=== PATIENT | male | born 1985 | race Hispanic/Latino ===

== ENCOUNTER 2022-08-14 16:18 | Inpatient (IN) | payer OTHER ==
[~2022-08-14] VITALS: Ht 172.7 cm; Wt 123.3 kg
[2022-08-14 16:49] LABS: BASOPHILS % (AUTO) 0.2 % (0.0-5.0); EOSINOPHILS % (AUTO) 0.6 % (0.0-8.0); HEMATOCRIT 48.6 % (42-54); LYMPHOCYTES % (AUTO) 11.2 % (21.0-51.0); MEAN CORPUSCULAR HEMOGLOBIN 30.9 pg (27.0-33.0); MEAN CORPUSCULAR HGB CONC 35.2 g/dL (32.0-36.0); MEAN CORPUSCULAR VOLUME 87.7 fL (79-99); NEUTROPHILS % (AUTO) 75.6 % (40.0-77.0); PLATELET COUNT (AUTO) 157 K/uL (130-400); RED BLOOD CELL COUNT(AUTO) 5.54 MIL/uL (4.50-6.20); RED CELL DISTRIBUTION WIDTH 12.8 % (11.0-15.5); WHITE BLOOD COUNT (AUTO) 12.4 K/uL (4.8-10.8)
[2022-08-14 17:04] LABS: CREATININE 0.7 mg/dL (0.5-1.5); POTASSIUM 3.8 mmol/L (3.5-5.1); TOTAL PROTEIN, SERUM 8.1 g/dL (6.0-8.3)
[2022-08-14 17:19] LABS: APPEARANCE,URINE CLEAR (CLEAR); BILIRUBIN,URINE NEGATIVE (NEGATIVE); COLOR,URINE LIGHT-YELLOW (YELLOW); GLUCOSE, URINE (UA) >=1000 mg/dL (NEGATIVE); KETONES,URINE 40 mg/dL (NEGATIVE); LEUKOCYTE ESTERASE ,URINE NEGATIVE Leu/uL (NEGATIVE); NITRATE,URINE NEGATIVE (NEGATIVE); OCCULT BLOOD,URINE NEGATIVE (NEGATIVE); PROTEIN,URINE 20 mg/dL (NEGATIVE); UROBILINOGEN,URINE 0.2 mg/dL (0.2-1.0)
[2022-08-14 17:22] LABS: RBC,URINE 0-1 /HPF (0-1); WBC,URINE 0-1 /HPF (0-1)
[2022-08-14] MEDS ORDERED: MORPHINE 4 MG SYG IVP ONE (17:30)
[2022-08-14] MEDS ORDERED: MORPHINE 4 MG SYG ONE (17:30)
[2022-08-14] MEDS ORDERED: KETOROLAC 30MG VIAL (30MG/ML) IVP ONE (20:30)
[2022-08-14] MEDS ORDERED: ONDANSETRON 4MG INJ IVP ONE (20:30)
[2022-08-14] MEDS ORDERED: LIDOCAINE HCL/PF 2% IV FOR VENTRICULAR ARRHYTHMIA IV PRN (21:30)
[2022-08-14] MEDS ORDERED: HYDROMORPHONE 1 MG INJ IVP ONE (21:30)
[2022-08-14] MEDS ORDERED: CYCLOBENZAPRINE HCL 10 MG TABLET PO ONE (23:00)
[2022-08-15] MEDS ORDERED: ONDANSETRON 4MG INJ IV PRN (00:30)
[2022-08-15 01:22] LABS: HEMOGLOBIN A1C 9.8 % (4.0-6.0)
[2022-08-15] MEDS: 0.9%NACL 1000ML 1,000 ML IV SCH ×3 (01:52→17:44)
[2022-08-15 02:35] VITALS: BP 160/92
[2022-08-15] MEDS ORDERED: METF500S9 PO (02:41)
[2022-08-15] MEDS: MORPHINE 2 MG SYG IV PRN ×2 (03:00→08:21)
[2022-08-15 08:00] VITALS: BP 146/92
[2022-08-15] MEDS: ACETAMINOPHEN 325 MG TAB PO PRN ×2 (08:15→18:39)
[2022-08-15] MEDS: FAMOTIDINE 20MG VIAL IV SCH ×2 (08:22→21:04)
[2022-08-15 11:03] LABS: HEMATOCRIT 45.8 % (42-54); MEAN CORPUSCULAR HEMOGLOBIN 31.1 pg (27.0-33.0); MEAN CORPUSCULAR HGB CONC 34.9 g/dL (32.0-36.0); MEAN CORPUSCULAR VOLUME 88.9 fL (79-99); RED BLOOD CELL COUNT(AUTO) 5.15 MIL/uL (4.50-6.20); RED CELL DISTRIBUTION WIDTH 12.5 % (11.0-15.5)
[2022-08-15 11:12] LABS: CREATININE 0.8 mg/dL (0.5-1.5); POTASSIUM 3.8 mmol/L (3.5-5.1)
[2022-08-15] MEDS ORDERED: LORAZEPAM 2 MG/ML 1 ML VIAL IVP PRN ×2 (11:30)
[2022-08-15] MEDS ORDERED: PHARMACY COMMUNICATION MISC PRN (11:30)
[2022-08-15] MEDS ORDERED: CHLORDIAZEPOXIDE HCL 25 MG CAP PO PRN ×2 (11:30)
[2022-08-15] MEDS: KETOROLAC 15MG/ML VIAL (15MG/ML) IV PRN ×2 (11:33→17:56)
[2022-08-15] MEDS: ZOSYN 3.375GM +NS 50ML IV SCH ×2 (11:33→18:38)
[2022-08-15 12:00] VITALS: BP 147/85
[2022-08-15] MEDS ORDERED: INSULIN HUMULIN R 100 UNIT/ML 3ML SQ SCH (12:00)
[2022-08-15] MEDS ORDERED: LIDOCAINE 5% TOPICAL PATCH TP ONE (13:00)
[2022-08-15] MEDS: CYCLOBENZAPRINE HCL 10 MG TABLET PO SCH ×2 (13:25→21:04)
[2022-08-15] MEDS: LIDOCAINE 5% TOPICAL PATCH TP SCH (13:25)
[2022-08-15] MEDS ORDERED: VANCOMYCIN PROTOCOL PER PHARMACY IV SCH (14:00)
[2022-08-15 16:00] VITALS: BP 139/116
[2022-08-15] MEDS ORDERED: DOXYCYCLINE 100MG+NS 250ML IV SCH (16:00)
[2022-08-15 16:10] LABS: AMPHET/METH SCREEN,URINE NEGATIVE (NEGATIVE); BARBITURATE SCREEN, URINE NEGATIVE (NEGATIVE); BENZODIAZEPINES SCREEN,URINE NEGATIVE (NEGATIVE); CANNABINOID SCREEN,URINE POSITIVE (NEGATIVE); COCAINE SCREEN,URINE POSITIVE (NEGATIVE); OPIATE SCREEN,URINE NEGATIVE (NEGATIVE); PHENCYCLIDINE SCREEN,URINE NEGATIVE (NEGATIVE)
[2022-08-15] MEDS: INSULIN HUMULIN R 100 UNIT/ML 3ML SQ SCH ×3 (16:30→21:25)
[2022-08-15] MEDS ORDERED: 0.9% NACL 250ML 250 ML ONE ×2 (17:23→21:21)
[2022-08-15] MEDS: VANCOMYCIN 1G/250ML KIT 250 ML IV SCH ×2 (17:43→21:26)
[2022-08-15] MEDS: LACTULOSE 20 GM/30 ML UDCUP PO PRN (17:56)
[2022-08-15 20:03] VITALS: BP 157/84
[2022-08-15] MEDS: DOXYCYCLINE HYCLATE 100 MG TABLET PO SCH (21:04)
[2022-08-15 22:50] VITALS: BP 166/91
[2022-08-16] MEDS: ACETAMINOPHEN 325 MG TAB PO PRN ×3 (00:54→15:07)
[2022-08-16 03:33] VITALS: BP 159/96
[2022-08-16] MEDS ORDERED: 0.9% NACL 250ML 250 ML ONE (05:07)
[2022-08-16] MEDS: ZOSYN 3.375GM +NS 50ML IV SCH ×3 (05:29→18:44)
[2022-08-16] MEDS: VANCOMYCIN 1G/250ML KIT 250 ML IV SCH (05:29)
[2022-08-16] MEDS: 0.9%NACL 1000ML 1,000 ML IV SCH ×4 (05:30→21:36)
[2022-08-16 07:30] VITALS: BP 151/92
[2022-08-16] MEDS: INSULIN HUMULIN R 100 UNIT/ML 3ML SQ SCH ×4 (07:47→20:18)
[2022-08-16] MEDS: LIDOCAINE 5% TOPICAL PATCH TP SCH (09:04)
[2022-08-16] MEDS: DOXYCYCLINE HYCLATE 100 MG TABLET PO SCH ×2 (09:04→20:17)
[2022-08-16] MEDS: CYCLOBENZAPRINE HCL 10 MG TABLET PO SCH ×3 (09:04→20:17)
[2022-08-16] MEDS: FAMOTIDINE 20MG VIAL IV SCH ×2 (09:05→20:17)
[2022-08-16 11:30] VITALS: BP 152/89
[2022-08-16] MEDS ORDERED: GADOTERATE MEGLUMINE 10 MMOL/20 ML VIAL IV ONE (13:45)
[2022-08-16] MEDS: KETOROLAC 15MG/ML VIAL (15MG/ML) IV PRN (14:44)
[2022-08-16] MEDS: VANCOMYCIN 1.25 GM/250 ML BAG 250 ML IV SCH ×2 (14:58→23:04)
[2022-08-16] MEDS: MORPHINE 2 MG SYG IV PRN ×2 (15:08→23:05)
[2022-08-16 20:31] VITALS: BP 162/101
[2022-08-16 22:02] LABS: APPEARANCE,URINE CLEAR (CLEAR); BILIRUBIN,URINE NEGATIVE (NEGATIVE); COLOR,URINE LIGHT-YELLOW (YELLOW); GLUCOSE, URINE (UA) >=1000 mg/dL (NEGATIVE); KETONES,URINE 20 mg/dL (NEGATIVE); LEUKOCYTE ESTERASE ,URINE NEGATIVE Leu/uL (NEGATIVE); NITRATE,URINE NEGATIVE (NEGATIVE); OCCULT BLOOD,URINE NEGATIVE (NEGATIVE); PROTEIN,URINE 10 mg/dL (NEGATIVE); WBC,URINE 0-1 /HPF (0-1)
[2022-08-17] MEDS: KETOROLAC 15MG/ML VIAL (15MG/ML) IV PRN ×4 (00:22→18:04)
[2022-08-17] MEDS: ACETAMINOPHEN 325 MG TAB PO PRN (00:22)
[2022-08-17 01:30] VITALS: BP 159/101
[2022-08-17] MEDS: ZOSYN 3.375GM +NS 50ML IV SCH ×3 (02:33→18:12)
[2022-08-17 04:09] VITALS: BP 163/106
[2022-08-17 04:25] LABS: BASOPHILS % (AUTO) 0.3 % (0.0-5.0); HEMATOCRIT 45.7 % (42-54); MEAN CORPUSCULAR HEMOGLOBIN 30.8 pg (27.0-33.0); MEAN CORPUSCULAR HGB CONC 35.2 g/dL (32.0-36.0); MEAN CORPUSCULAR VOLUME 87.5 fL (79-99); MONOCYTES % (AUTO) 11.9 % (3.0-13.0); NEUTROPHILS % (AUTO) 75.3 % (40.0-77.0); PLATELET COUNT (AUTO) 134 K/uL (130-400); RED BLOOD CELL COUNT(AUTO) 5.22 MIL/uL (4.50-6.20); RED CELL DISTRIBUTION WIDTH 11.9 % (11.0-15.5); WHITE BLOOD COUNT (AUTO) 7.7 K/uL (4.8-10.8)
[2022-08-17 04:47] LABS: ALBUMIN 2.5 g/dL (3.5-5.0); CREATININE 0.8 mg/dL (0.5-1.5); TOTAL PROTEIN, SERUM 6.2 g/dL (6.0-8.3)
[2022-08-17 05:55] LABS: POTASSIUM 2.9 mmol/L (3.5-5.1)
[2022-08-17] MEDS ORDERED: KCL 20 MEQ ERTAB PO ONE (06:13)
[2022-08-17] MEDS ORDERED: POTASSIUM CHLORIDE 20MEQ/100ML 100 ML IV ONE (06:14)
[2022-08-17] MEDS: KCL 20 MEQ ERTAB PO PRN ×4 (06:17→18:12)
[2022-08-17] MEDS: VANCOMYCIN 1.25 GM/250 ML BAG 250 ML IV SCH ×2 (06:18→15:16)
[2022-08-17] MEDS: INSULIN HUMULIN R 100 UNIT/ML 3ML SQ SCH ×4 (06:19→21:27)
[2022-08-17] MEDS ORDERED: POTASSIUM CHLORIDE 20MEQ/100ML 100 ML IV PRN (06:30)
[2022-08-17] MEDS ORDERED: LIDOCAINE HCL-MPF 1% 2ML VIAL IV PRN (06:30)
[2022-08-17] MEDS ORDERED: POTASSIUM CHLORIDE 10% ELIXIR 20 MEQ/15 ML UDCUP PO PRN (06:30)
[2022-08-17 07:30] VITALS: BP 145/95
[2022-08-17] MEDS: 0.9%NACL 1000ML 1,000 ML IV SCH ×2 (08:30→20:49)
[2022-08-17] MEDS: FAMOTIDINE 20MG VIAL IV SCH ×2 (09:45→20:48)
[2022-08-17] MEDS: DOXYCYCLINE HYCLATE 100 MG TABLET PO SCH ×2 (09:46→20:48)
[2022-08-17] MEDS: LIDOCAINE 5% TOPICAL PATCH TP SCH (09:46)
[2022-08-17] MEDS: CYCLOBENZAPRINE HCL 10 MG TABLET PO SCH ×3 (09:46→20:48)
[2022-08-17 11:00] VITALS: BP 135/75
[2022-08-17 16:00] VITALS: BP 163/91
[2022-08-17] MEDS: VANCOMYCIN 1.5 GM/250 ML BAG 250 ML IV SCH (20:48)
[2022-08-17] MEDS: MORPHINE 2 MG SYG IV PRN (21:27)
[2022-08-17 21:29] VITALS: BP 173/105
[2022-08-18] MEDS: KETOROLAC 15MG/ML VIAL (15MG/ML) IV PRN ×3 (00:14→20:03)
[2022-08-18 00:23] VITALS: BP 150/91
[2022-08-18] MEDS: 0.9%NACL 1000ML 1,000 ML IV SCH ×3 (00:30→16:59)
[2022-08-18] MEDS: ZOSYN 3.375GM +NS 50ML IV SCH ×2 (02:17→10:34)
[2022-08-18] MEDS: VANCOMYCIN 1.5 GM/250 ML BAG 250 ML IV SCH ×2 (04:27→13:45)
[2022-08-18] MEDS: ACETAMINOPHEN 325 MG TAB PO PRN (04:28)
[2022-08-18 05:06] VITALS: BP 155/95
[2022-08-18 05:20] LABS: HEMATOCRIT 45.1 % (42-54); MEAN CORPUSCULAR HEMOGLOBIN 30.3 pg (27.0-33.0); MEAN CORPUSCULAR VOLUME 86.4 fL (79-99); RED BLOOD CELL COUNT(AUTO) 5.22 MIL/uL (4.50-6.20); RED CELL DISTRIBUTION WIDTH 11.9 % (11.0-15.5); WHITE BLOOD COUNT (AUTO) 6.4 K/uL (4.8-10.8)
[2022-08-18 05:39] LABS: ALBUMIN 2.5 g/dL (3.5-5.0); CREATININE 0.8 mg/dL (0.5-1.5); POTASSIUM 3.3 mmol/L (3.5-5.1); TOTAL PROTEIN, SERUM 6.3 g/dL (6.0-8.3)
[2022-08-18] MEDS: INSULIN HUMULIN R 100 UNIT/ML 3ML SQ SCH ×4 (05:49→20:06)
[2022-08-18] MEDS: KCL 20 MEQ ERTAB PO PRN (05:50)
[2022-08-18 08:00] VITALS: BP 140/92
[2022-08-18] MEDS: CYCLOBENZAPRINE HCL 10 MG TABLET PO SCH ×3 (09:04→19:58)
[2022-08-18] MEDS: DOXYCYCLINE HYCLATE 100 MG TABLET PO SCH (09:05)
[2022-08-18] MEDS: FAMOTIDINE 20MG VIAL IV SCH ×2 (09:05→19:58)
[2022-08-18] MEDS: LIDOCAINE 5% TOPICAL PATCH TP SCH (09:06)
[2022-08-18 12:00] VITALS: BP 162/97
[2022-08-18 16:00] VITALS: BP 172/104
[2022-08-18] MEDS: CEFAZOLIN SODIUM 1 GM VIAL IVP SCH ×2 (16:59→22:57)
[2022-08-18 20:19] VITALS: BP 155/96
[2022-08-19] VITALS (7 sets, daily range): BP systolic 138–177; BP diastolic 89–102
[2022-08-19] MEDS: 0.9%NACL 1000ML 1,000 ML IV SCH ×2 (00:30→04:30)
[2022-08-19] MEDS: MORPHINE 2 MG SYG IV PRN (00:44)
[2022-08-19 04:43] LABS: HEMATOCRIT 39.5 % (42-54); MEAN CORPUSCULAR HEMOGLOBIN 30.7 pg (27.0-33.0); MEAN CORPUSCULAR HGB CONC 35.4 g/dL (32.0-36.0); MEAN CORPUSCULAR VOLUME 86.6 fL (79-99); RED BLOOD CELL COUNT(AUTO) 4.56 MIL/uL (4.50-6.20); WHITE BLOOD COUNT (AUTO) 6.6 K/uL (4.8-10.8)
[2022-08-19 04:52] LABS: CREATININE 0.7 mg/dL (0.5-1.5); POTASSIUM 3.2 mmol/L (3.5-5.1)
[2022-08-19] MEDS: INSULIN HUMULIN R 100 UNIT/ML 3ML SQ SCH ×4 (05:29→22:34)
[2022-08-19] MEDS: KCL 20 MEQ ERTAB PO PRN (05:50)
[2022-08-19] MEDS: FAMOTIDINE 20MG VIAL IV SCH ×2 (08:32→20:03)
[2022-08-19] MEDS: CEFAZOLIN SODIUM 1 GM VIAL IVP SCH ×2 (08:32→16:47)
[2022-08-19] MEDS: CYCLOBENZAPRINE HCL 10 MG TABLET PO SCH ×3 (08:32→20:03)
[2022-08-19] MEDS: LIDOCAINE 5% TOPICAL PATCH TP SCH (08:32)
[2022-08-19] MEDS: LACTULOSE 20 GM/30 ML UDCUP PO PRN (12:04)
[2022-08-19] MEDS: KETOROLAC 15MG/ML VIAL (15MG/ML) IV PRN ×2 (12:04→22:13)
[2022-08-20] MEDS: CEFAZOLIN SODIUM 1 GM VIAL IVP SCH ×3 (00:28→21:05)
[2022-08-20 03:40] VITALS: BP 162/98
[2022-08-20 04:28] LABS: HEMATOCRIT 41.6 % (42-54); MEAN CORPUSCULAR HGB CONC 35.8 g/dL (32.0-36.0); MEAN CORPUSCULAR VOLUME 86.5 fL (79-99); RED BLOOD CELL COUNT(AUTO) 4.81 MIL/uL (4.50-6.20); RED CELL DISTRIBUTION WIDTH 11.9 % (11.0-15.5); WHITE BLOOD COUNT (AUTO) 6.2 K/uL (4.8-10.8)
[2022-08-20] MEDS: KETOROLAC 15MG/ML VIAL (15MG/ML) IV PRN (04:34)
[2022-08-20 04:39] LABS: CREATININE 0.7 mg/dL (0.5-1.5); POTASSIUM 3.4 mmol/L (3.5-5.1)
[2022-08-20] MEDS: KCL 20 MEQ ERTAB PO PRN (05:56)
[2022-08-20] MEDS: INSULIN HUMULIN R 100 UNIT/ML 3ML SQ SCH ×4 (05:59→23:43)
[2022-08-20 07:17] LABS: INR 1.15 (0.85-1.15); PROTHROMBIN TIME 12.4 SEC (9.6-11.6)
[2022-08-20 07:19] LABS: PARTIAL THROMBOPLASTIN TIME 26.2 SEC (26.3-35.5)
[2022-08-20 08:45] VITALS: BP 148/100
[2022-08-20] MEDS: LIDOCAINE 5% TOPICAL PATCH TP SCH (11:06)
[2022-08-20] MEDS: CYCLOBENZAPRINE HCL 10 MG TABLET PO SCH ×4 (11:07→21:06)
[2022-08-20] MEDS: FAMOTIDINE 20MG VIAL IV SCH ×2 (11:07→21:06)
[2022-08-20 12:23] VITALS: BP 159/109
[2022-08-20 20:59] VITALS: BP 158/88
[2022-08-20] MEDS: ACETAMINOPHEN 325 MG TAB PO PRN (21:06)
[2022-08-21] VITALS (7 sets, daily range): BP systolic 131–148; BP diastolic 73–96
[2022-08-21] MEDS: CEFAZOLIN SODIUM 1 GM VIAL IVP SCH ×3 (00:06→16:36)
[2022-08-21] MEDS ORDERED: MORPHINE 2 MG SYG IVP PRN (03:30)
[2022-08-21] MEDS ORDERED: MORPHINE 2 MG SYG ONE (03:38)
[2022-08-21 04:43] LABS: HEMATOCRIT 42.5 % (42-54); MEAN CORPUSCULAR HEMOGLOBIN 30.4 pg (27.0-33.0); MEAN CORPUSCULAR HGB CONC 35.1 g/dL (32.0-36.0); MEAN CORPUSCULAR VOLUME 86.7 fL (79-99); RED BLOOD CELL COUNT(AUTO) 4.9 MIL/uL (4.50-6.20); WHITE BLOOD COUNT (AUTO) 6.5 K/uL (4.8-10.8)
[2022-08-21 05:04] LABS: CREATININE 0.5 mg/dL (0.5-1.5); POTASSIUM 5.1 mmol/L (3.5-5.1)
[2022-08-21] MEDS: INSULIN HUMULIN R 100 UNIT/ML 3ML SQ SCH ×4 (06:06→20:44)
[2022-08-21] MEDS: FAMOTIDINE 20MG VIAL IV SCH ×2 (10:19→20:44)
[2022-08-21] MEDS: CYCLOBENZAPRINE HCL 10 MG TABLET PO SCH ×3 (10:19→20:42)
[2022-08-21] MEDS: LIDOCAINE 5% TOPICAL PATCH TP SCH (10:22)
[2022-08-22] MEDS: CEFAZOLIN SODIUM 1 GM VIAL IVP SCH ×3 (00:37→15:53)
[2022-08-22] MEDS: KETOROLAC 15MG/ML VIAL (15MG/ML) IV PRN (03:56)
[2022-08-22 05:03] VITALS: BP 165/105
[2022-08-22] MEDS: INSULIN HUMULIN R 100 UNIT/ML 3ML SQ SCH ×4 (06:12→21:17)
[2022-08-22 07:22] LABS: BASOPHILS % (AUTO) 0.5 % (0.0-5.0); HEMATOCRIT 43.5 % (42-54); MEAN CORPUSCULAR HEMOGLOBIN 30.5 pg (27.0-33.0); MEAN CORPUSCULAR HGB CONC 34.9 g/dL (32.0-36.0); MEAN CORPUSCULAR VOLUME 87.2 fL (79-99); MONOCYTES % (AUTO) 12.1 % (3.0-13.0); NEUTROPHILS % (AUTO) 54.9 % (40.0-77.0); PLATELET COUNT (AUTO) 236 K/uL (130-400); RED BLOOD CELL COUNT(AUTO) 4.99 MIL/uL (4.50-6.20); RED CELL DISTRIBUTION WIDTH 12.2 % (11.0-15.5); WHITE BLOOD COUNT (AUTO) 6.6 K/uL (4.8-10.8)
[2022-08-22 07:52] LABS: ALBUMIN 2.8 g/dL (3.5-5.0); CREATININE 0.7 mg/dL (0.5-1.5); POTASSIUM 3.9 mmol/L (3.5-5.1); TOTAL PROTEIN, SERUM 6.6 g/dL (6.0-8.3)
[2022-08-22 08:00] VITALS: BP 127/82
[2022-08-22] MEDS: LIDOCAINE 5% TOPICAL PATCH TP SCH (09:04)
[2022-08-22] MEDS: FAMOTIDINE 20MG VIAL IV SCH ×2 (09:05→20:23)
[2022-08-22] MEDS: CYCLOBENZAPRINE HCL 10 MG TABLET PO SCH ×3 (09:05→20:23)
[2022-08-22 12:00] VITALS: BP 165/105
[2022-08-22] MEDS: LACTULOSE 20 GM/30 ML UDCUP PO PRN (15:53)
[2022-08-22 16:00] VITALS: BP 166/90
[2022-08-22] MEDS ORDERED: ALTEPLASE 2MG VIAL 2 MG/VIAL VIAL IVCATH SCH (16:00)
[2022-08-22 21:30] VITALS: BP 155/97
[2022-08-23 00:11] VITALS: BP 158/95
[2022-08-23] MEDS: CEFAZOLIN SODIUM 1 GM VIAL IVP SCH ×3 (00:31→16:07)
[2022-08-23] MEDS: KETOROLAC 15MG/ML VIAL (15MG/ML) IV PRN ×2 (01:18→10:01)
[2022-08-23 04:38] VITALS: BP 160/100
[2022-08-23] MEDS: INSULIN HUMULIN R 100 UNIT/ML 3ML SQ SCH ×4 (07:30→21:00)
[2022-08-23 08:18] VITALS: BP 125/88
[2022-08-23] MEDS: CYCLOBENZAPRINE HCL 10 MG TABLET PO SCH ×3 (09:47→21:20)
[2022-08-23] MEDS: LIDOCAINE 5% TOPICAL PATCH TP SCH (09:47)
[2022-08-23] MEDS: FAMOTIDINE 20MG VIAL IV SCH (09:47)
[2022-08-23 11:34] VITALS: BP 133/92
[2022-08-23 15:30] LABS: HEMATOCRIT 43.6 % (42-54); MEAN CORPUSCULAR HEMOGLOBIN 30.9 pg (27.0-33.0); MEAN CORPUSCULAR HGB CONC 35.3 g/dL (32.0-36.0); MEAN CORPUSCULAR VOLUME 87.4 fL (79-99); RED BLOOD CELL COUNT(AUTO) 4.99 MIL/uL (4.50-6.20); RED CELL DISTRIBUTION WIDTH 12.2 % (11.0-15.5); WHITE BLOOD COUNT (AUTO) 6.6 K/uL (4.8-10.8)
[2022-08-23 15:37] LABS: CREATININE 0.7 mg/dL (0.5-1.5); POTASSIUM 3.6 mmol/L (3.5-5.1)
[2022-08-23 16:10] VITALS: BP 147/93
[2022-08-23 20:55] VITALS: BP 141/97
[2022-08-23] MEDS: FAMOTIDINE 20MG TAB PO SCH (21:20)
[2022-08-24] VITALS (8 sets, daily range): BP systolic 108–173; BP diastolic 64–103
[2022-08-24] MEDS: CEFAZOLIN SODIUM 1 GM VIAL IVP SCH ×3 (00:55→16:13)
[2022-08-24] MEDS: KETOROLAC 15MG/ML VIAL (15MG/ML) IV PRN ×2 (00:55→16:39)
[2022-08-24 05:35] LABS: HEMATOCRIT 43.7 % (42-54); MEAN CORPUSCULAR HEMOGLOBIN 30.7 pg (27.0-33.0); MEAN CORPUSCULAR HGB CONC 34.8 g/dL (32.0-36.0); MEAN CORPUSCULAR VOLUME 88.3 fL (79-99); RED BLOOD CELL COUNT(AUTO) 4.95 MIL/uL (4.50-6.20); RED CELL DISTRIBUTION WIDTH 12.1 % (11.0-15.5); WHITE BLOOD COUNT (AUTO) 7.1 K/uL (4.8-10.8)
[2022-08-24 05:43] LABS: CREATININE 0.7 mg/dL (0.5-1.5); POTASSIUM 4.2 mmol/L (3.5-5.1)
[2022-08-24] MEDS: INSULIN HUMULIN R 100 UNIT/ML 3ML SQ SCH ×3 (06:53→20:52)
[2022-08-24] MEDS: FAMOTIDINE 20MG TAB PO SCH ×2 (09:10→20:45)
[2022-08-24] MEDS: CYCLOBENZAPRINE HCL 10 MG TABLET PO SCH ×3 (09:10→20:46)
[2022-08-24] MEDS: LIDOCAINE 5% TOPICAL PATCH TP SCH (09:10)
[2022-08-24] MEDS ORDERED: GADOTERATE MEGLUMINE 10 MMOL/20 ML VIAL IV ONE (10:55)
[2022-08-24] MEDS ORDERED: IOHEXOL 350 MG/ML 100ML INFUS..BTL IV ONE (15:30)
[2022-08-24] MEDS: LISINOPRIL 5 MG TABLET PO SCH (16:12)
[2022-08-25] MEDS: CEFAZOLIN SODIUM 1 GM VIAL IVP SCH ×4 (01:04→23:05)
[2022-08-25 03:34] VITALS: BP 156/79
[2022-08-25 05:42] LABS: MEAN CORPUSCULAR HEMOGLOBIN 30.9 pg (27.0-33.0); MEAN CORPUSCULAR VOLUME 88.4 fL (79-99); RED BLOOD CELL COUNT(AUTO) 4.98 MIL/uL (4.50-6.20); RED CELL DISTRIBUTION WIDTH 12.1 % (11.0-15.5)
[2022-08-25 05:53] LABS: CREATININE 0.7 mg/dL (0.5-1.5); POTASSIUM 4.2 mmol/L (3.5-5.1)
[2022-08-25] MEDS: INSULIN HUMULIN R 100 UNIT/ML 3ML SQ SCH ×4 (07:30→20:23)
[2022-08-25 07:59] VITALS: BP 156/97
[2022-08-25] MEDS: LIDOCAINE 5% TOPICAL PATCH TP SCH (08:45)
[2022-08-25] MEDS: CYCLOBENZAPRINE HCL 10 MG TABLET PO SCH ×3 (08:46→22:55)
[2022-08-25] MEDS: FAMOTIDINE 20MG TAB PO SCH ×2 (08:46→22:55)
[2022-08-25] MEDS: LISINOPRIL 5 MG TABLET PO SCH (08:47)
[2022-08-25 11:43] VITALS: BP 130/92
[2022-08-25 16:00] VITALS: BP 140/85
[2022-08-25 20:34] VITALS: BP 116/92
[2022-08-25] MEDS: KETOROLAC 15MG/ML VIAL (15MG/ML) IV PRN (22:55)
[2022-08-26 00:13] VITALS: BP 138/87
[2022-08-26 04:04] VITALS: BP 152/102
[2022-08-26 04:56] LABS: HEMATOCRIT 43.6 % (42-54); MEAN CORPUSCULAR HEMOGLOBIN 30.5 pg (27.0-33.0); MEAN CORPUSCULAR HGB CONC 34.4 g/dL (32.0-36.0); MEAN CORPUSCULAR VOLUME 88.8 fL (79-99); RED BLOOD CELL COUNT(AUTO) 4.91 MIL/uL (4.50-6.20); RED CELL DISTRIBUTION WIDTH 12.1 % (11.0-15.5); WHITE BLOOD COUNT (AUTO) 7.4 K/uL (4.8-10.8)
[2022-08-26 05:11] LABS: CREATININE 0.7 mg/dL (0.5-1.5); POTASSIUM 4.1 mmol/L (3.5-5.1)
[2022-08-26] MEDS: INSULIN HUMULIN R 100 UNIT/ML 3ML SQ SCH ×6 (06:24→20:32)
[2022-08-26 08:00] VITALS: BP 155/101
[2022-08-26] MEDS: FAMOTIDINE 20MG TAB PO SCH ×2 (08:48→20:29)
[2022-08-26] MEDS: CEFAZOLIN SODIUM 1 GM VIAL IVP SCH (08:48)
[2022-08-26] MEDS: LISINOPRIL 5 MG TABLET PO SCH (08:48)
[2022-08-26] MEDS: CYCLOBENZAPRINE HCL 10 MG TABLET PO SCH ×3 (08:48→20:51)
[2022-08-26] MEDS: LIDOCAINE 5% TOPICAL PATCH TP SCH (08:48)
[2022-08-26] MEDS ORDERED: ALTEPLASE 2MG VIAL 2 MG/VIAL VIAL IVCATH SCH (09:30)
[2022-08-26 11:53] VITALS: BP 131/98
[2022-08-26] MEDS ORDERED: VANCOMYCIN PROTOCOL PER PHARMACY IV SCH (14:30)
[2022-08-26 16:00] VITALS: BP 146/95
[2022-08-26] MEDS: VANCOMYCIN 1.5 GM/250 ML BAG 250 ML IV SCH (16:08)
[2022-08-26 20:00] VITALS: BP 152/109
[2022-08-27] VITALS: BP 142/85
[2022-08-27] MEDS: VANCOMYCIN 1.5 GM/250 ML BAG 250 ML IV SCH ×2 (03:11→15:47)
[2022-08-27 04:00] VITALS: BP 109/73
[2022-08-27 04:19] LABS: HEMATOCRIT 44.5 % (42-54); MEAN CORPUSCULAR HEMOGLOBIN 30.6 pg (27.0-33.0); MEAN CORPUSCULAR HGB CONC 34.6 g/dL (32.0-36.0); MEAN CORPUSCULAR VOLUME 88.5 fL (79-99); RED BLOOD CELL COUNT(AUTO) 5.03 MIL/uL (4.50-6.20); RED CELL DISTRIBUTION WIDTH 12.1 % (11.0-15.5); WHITE BLOOD COUNT (AUTO) 8.2 K/uL (4.8-10.8)
[2022-08-27 04:31] LABS: CREATININE 0.9 mg/dL (0.5-1.5); POTASSIUM 4.5 mmol/L (3.5-5.1)
[2022-08-27] MEDS: INSULIN HUMULIN R 100 UNIT/ML 3ML SQ SCH ×7 (06:30→20:45)
[2022-08-27 08:16] VITALS: BP 137/92
[2022-08-27] MEDS: LIDOCAINE 5% TOPICAL PATCH TP SCH (09:07)
[2022-08-27] MEDS: FAMOTIDINE 20MG TAB PO SCH ×2 (09:08→20:40)
[2022-08-27] MEDS: LISINOPRIL 10 MG TABLET PO SCH (09:08)
[2022-08-27] MEDS: CYCLOBENZAPRINE HCL 10 MG TABLET PO SCH ×3 (09:09→20:40)
[2022-08-27 12:00] VITALS: BP 118/81
[2022-08-27 16:00] VITALS: BP 144/87
[2022-08-27 20:15] VITALS: BP 130/86
[2022-08-28 00:12] VITALS: BP 134/92
[2022-08-28 02:44] LABS: HEMATOCRIT 44.7 % (42-54); MEAN CORPUSCULAR HEMOGLOBIN 30.4 pg (27.0-33.0); MEAN CORPUSCULAR HGB CONC 34.5 g/dL (32.0-36.0); MEAN CORPUSCULAR VOLUME 88.3 fL (79-99); RED BLOOD CELL COUNT(AUTO) 5.06 MIL/uL (4.50-6.20); RED CELL DISTRIBUTION WIDTH 12.1 % (11.0-15.5); WHITE BLOOD COUNT (AUTO) 7.7 K/uL (4.8-10.8)
[2022-08-28 02:59] LABS: CREATININE 0.8 mg/dL (0.5-1.5); POTASSIUM 4.1 mmol/L (3.5-5.1)
[2022-08-28] MEDS: VANCOMYCIN 1.5 GM/250 ML BAG 250 ML IV SCH (03:35)
[2022-08-28 04:31] VITALS: BP 140/92
[2022-08-28] MEDS: INSULIN HUMULIN R 100 UNIT/ML 3ML SQ SCH ×7 (05:39→21:00)
[2022-08-28 08:00] VITALS: BP 127/94
[2022-08-28] MEDS: CYCLOBENZAPRINE HCL 10 MG TABLET PO SCH ×3 (08:55→21:00)
[2022-08-28] MEDS: FAMOTIDINE 20MG TAB PO SCH ×2 (08:55→21:00)
[2022-08-28] MEDS: LISINOPRIL 10 MG TABLET PO SCH (08:55)
[2022-08-28] MEDS: LIDOCAINE 5% TOPICAL PATCH TP SCH (08:56)
[2022-08-28 12:00] VITALS: BP 128/75
[2022-08-28] MEDS: VANCOMYCIN 1.75 GM/250 ML BAG 250 ML IV SCH (15:58)
[2022-08-28 16:00] VITALS: BP 142/97
[2022-08-28 20:00] VITALS: BP 144/84
[2022-08-29] VITALS (7 sets, daily range): BP systolic 113–141; BP diastolic 52–98
[2022-08-29] MEDS: VANCOMYCIN 1.75 GM/250 ML BAG 250 ML IV SCH ×2 (04:30→15:18)
[2022-08-29] MEDS: INSULIN HUMULIN R 100 UNIT/ML 3ML SQ SCH ×7 (05:35→20:50)
[2022-08-29] MEDS: LIDOCAINE 5% TOPICAL PATCH TP SCH (08:56)
[2022-08-29] MEDS: CYCLOBENZAPRINE HCL 10 MG TABLET PO SCH ×3 (08:57→20:34)
[2022-08-29] MEDS: FAMOTIDINE 20MG TAB PO SCH ×2 (08:57→20:34)
[2022-08-29] MEDS: LISINOPRIL 10 MG TABLET PO SCH (08:57)
[2022-08-30] MEDS: VANCOMYCIN 1.75 GM/250 ML BAG 250 ML IV SCH ×2 (03:53→15:21)
[2022-08-30 04:21] VITALS: BP 127/85
[2022-08-30 07:15] VITALS: BP 129/92
[2022-08-30] MEDS: INSULIN HUMULIN R 100 UNIT/ML 3ML SQ SCH ×7 (08:15→20:42)
[2022-08-30] MEDS: FAMOTIDINE 20MG TAB PO SCH ×2 (09:27→20:41)
[2022-08-30] MEDS: LISINOPRIL 10 MG TABLET PO SCH (09:27)
[2022-08-30] MEDS: LIDOCAINE 5% TOPICAL PATCH TP SCH (09:27)
[2022-08-30] MEDS: CYCLOBENZAPRINE HCL 10 MG TABLET PO SCH ×3 (09:28→20:41)
[2022-08-30 11:32] VITALS: BP 129/85
[2022-08-30 15:41] VITALS: BP 128/82
[2022-08-30] MEDS ORDERED: 0.9%NACL 1000ML 1,000 ML IV SCH (19:00)
[2022-08-30 19:53] VITALS: BP 133/84
[2022-08-30] MEDS ORDERED: EPOETIN ALFA-EPBX (NON-ESRD) 10,000 UNIT/ML VIAL SQ SCH (20:00)
[2022-08-30 23:45] VITALS: BP 131/82
[2022-08-31] MEDS: VANCOMYCIN 1.75 GM/250 ML BAG 250 ML IV SCH (03:04)
[2022-08-31 04:15] VITALS: BP 137/87
[2022-08-31] MEDS: INSULIN HUMULIN R 100 UNIT/ML 3ML SQ SCH ×4 (06:00→13:09)
[2022-08-31 07:30] VITALS: BP 127/86
[2022-08-31] MEDS: LIDOCAINE 5% TOPICAL PATCH TP SCH (09:55)
[2022-08-31] MEDS: FAMOTIDINE 20MG TAB PO SCH (09:56)
[2022-08-31] MEDS: LISINOPRIL 10 MG TABLET PO SCH (09:56)
[2022-08-31] MEDS: CYCLOBENZAPRINE HCL 10 MG TABLET PO SCH (09:56)
[2022-08-31] MEDS ORDERED: LISI10TA24 PO (10:38)
[2022-08-31] MEDS ORDERED: CYCL-309 PO (10:38)
[2022-08-31 12:00] VITALS: BP 149/106
== END 2022-08-31 13:28 | disposition home or self-care (01) | DRG 872 ==
LOC: EDH 16:18 → EDHIP 16:19 → 4CH 08-15 02:20
PROVIDERS: ADMIT Hospitalist; ATTEND Hospitalist
DX: A41.01 Sepsis due to Methicillin susceptible Staphylococcus aureus (principal); Z68.41 Body mass index [BMI] 40.0-44.9, adult; K56.609 Unspecified intestinal obstruction, unspecified as to partial versus complete obstruction; Z20.822 Contact with and (suspected) exposure to COVID-19; E87.1 Hypo-osmolality and hyponatremia; L03.312 Cellulitis of back [any part except buttock and flank]; M46.24 Osteomyelitis of vertebra, thoracic region; E87.6 Hypokalemia; E11.65 Type 2 diabetes mellitus with hyperglycemia; W01.0XXA Fall on same level from slipping, tripping and stumbling without subsequent striking against object, initial encounter; E11.69 Type 2 diabetes mellitus with other specified complication; E66.01 Morbid (severe) obesity due to excess calories; F17.210 Nicotine dependence, cigarettes, uncomplicated; I10 Essential (primary) hypertension; Z79.2 Long term (current) use of antibiotics; Z83.3 Family history of diabetes mellitus; Z82.49 Family history of ischemic heart disease and other diseases of the circulatory system; Y93.89 Activity, other specified; Y92.89 Other specified places as the place of occurrence of the external cause; Y99.8 Other external cause status
CPT/HCPCS: 36415; 71045; 71250; 72128; 72131; 72157; 72158; 74176; 74177; 76700; 76705; 80048; 80053; 80202; 80305; 81001; 82948; 83036; 84145; 85025; 85027; 85610; 85730; 87040; 87077; 87088; 87186; 87635; 87804; 93306; 93971; C1894; G0378; J0690; J1170; J1815; J1885; J2060; J2270; J2405; J2543; J2997; J3370; J3480; J3490; J7030; J7050; Q9967

== ENCOUNTER 2023-01-16 12:10 | Emergency (ER) | payer OTHER, SELFPAY ==
[~2023-01-16] VITALS: Ht 177.8 cm; Wt 117.9 kg
[~2023-01-16 12:10] MED LIST: CYCL-309 PO; LISI10TA24 PO; METF500S9 PO
[2023-01-16] MEDS ORDERED: SULF1TAB42 PO (15:22)
[2023-01-16 15:53] VITALS: BP 130/82
== END 2023-01-16 15:54 | disposition home or self-care (01) ==
LOC: EDH 12:10
DX: L02.212 Cutaneous abscess of back [any part, except buttock and flank] (principal); I10 Essential (primary) hypertension; E11.9 Type 2 diabetes mellitus without complications; F17.200 Nicotine dependence, unspecified, uncomplicated; Z79.899 Other long term (current) drug therapy; Z79.84 Long term (current) use of oral hypoglycemic drugs
CPT/HCPCS: 72100